=== PATIENT | female | born 1935 | race Caucasian/White ===

== ENCOUNTER 2018-01-02 18:00 | Observation (INO) ==
[2018-01-02 18:19] LABS: Basophils # 0.1 K/mcL (0.0-0.2); Basophils % 0.7 %; Eosinophils # 0.2 K/mcL (0.0-0.6); Hematocrit 43.7 % (35.3-44.9); Hemoglobin 15.2 g/dL (11.5-15.4); Immature Granulocytes % 0.3 % (0-4); Lymphocytes # 2.7 K/mcL (0.6-4.6); Lymphocytes % 38.6 %; Mean Corpuscular HGB Conc 34.8 g/dL (31.6-35.5); Mean Platelet Volume 9.5 fL (9.4-12.4); Monocytes # 0.5 K/mcL (0.0-1.3); Monocytes % 6.5 %; Neutrophils # 3.5 K/mcL (1.6-8.9); Platelet Count 199 K/mcL (140-400); Red Blood Count 4.91 M/mcL (3.82-4.97); Red Cell Distribution Width 12.7 % (11.5-14.5); Segmented Neutrophils % 50.9 %
[2018-01-02 18:23] LABS: INR 1.2; Prothrombin Time 12.5 Seconds (9.4-12.1)
[2018-01-02 18:38] LABS: BUN/Creatinine Ratio 18 (6-26); Blood Urea Nitrogen 17 mg/dL (8-23); Calcium 9.7 mg/dL (8.6-10.3); Carbon Dioxide 25 mEq/L (23-29); Chloride 100 mEq/L (98-107); Glucose 97 mg/dL (70-105); Osmolality,Calculated 283 (280-300); Potassium 3.3 mEq/L (3.5-5.1); Sodium 136 mEq/L (136-145); Troponin I < 0.03 ng/mL (< 0.04); eGFR For African Americans > 60 (> 60); eGFR For Non-African Americans 58 (> 60)
--- NOTE | 2018-01-02 18:43 | Emergency Department Note ---
Disposition Clinical Impression: Reactive airway disease, Bronchitis, Atypical chest pain Disposition: Admitted As Inpatient Condition: Serious Time of Disposition: 21:31 General Adult HPI - General Chief complaint: ED Shortness of Breath/Dyspnea Stated complaint: chest pain Time Seen by Provider: 01/02/18 18:19 Source: patient Limitations: no limitations Nursing Notes Reviewed: Yes Vital Signs Reviewed: Yes - History of Present Illness HPI Narrative: Patient presents today with CC of: chest tightness light headed short of breath Patient describes issue began around several months since she had pneumonia in July. Patient states she has been having on and off shortness of breath has gotten significantly worse within the last week. She has also been having some tightness on and off has been going on since July. She was recently evaluated by a senior sharepoint architect with a heart catheter that she says was normal. Patient went to her doctor's office today because of cough and shortness of breath became lightheaded and short of breath. She said she has been having fatigue and generalized tiredness as well. She has not been exposed to anybody sick she is not any fevers. She describes a tightness in her chest as a pressure and very difficult to describe. She has not had any nausea vomiting or diarrhea. She has not had any fever. She has been urinating normally having regular bowel movements. Dr. Jones called me earlier prior to the patient's arrival and said that her oxygen saturation was good and so was her blood pressure in the office with a heart rate in the 70s. Pain Scale: 0 - Related Data Home Medications Medication Instructions Recorded Confirmed Aspirin Enteric Coated [Aspirin EC] 81 mg PO DAILY 05/31/15 12/01/16 Multivitamin [Multi-Day Vitamins] 1 tab PO DAILY 05/31/15 12/01/16 Omeprazole [PriLOSEC] 40 mg PO DAILY 05/31/15 12/01/16 Allopurinol [Zyloprim 300 MG] 300 mg PO DAILY 12/01/16 12/01/16 Gabapentin [Neurontin] 300 mg PO BID 12/01/16 12/01/16 Lisinopril [Zestril] 10 mg PO DAILY 12/01/16 12/01/16 amLODIPine [Norvasc] 5 mg PO DAILY 12/01/16 12/01/16 Previous Rx's Medication Instructions Recorded Hydrochlorothiazide 25 mg PO DAILY #30 tablet 05/31/15 Azithromycin [Zithromax] 250 mg PO Q24H #4 tablet 12/01/16 Allergies Allergy/AdvReac Type Severity Reaction Status Date / Time nitrofurantoin Allergy Vomiting Verified 05/31/15 04:20 [From Macrobid] Oxycodone [From Percocet] Allergy Rash Verified 05/31/15 04:20 Sulfa (Sulfonamide Allergy See Verified 05/31/15 04:20 Antibiotics) Comments Review of Systems: HEART SCORE : H=1 E=1 A=2 R=2 T=0 HEART Score: H= Suspiciousness: High=2, mod=1, min=0 E= EKG: Significant ST=2, nonspecific repol=1, normal=0 A= Age: >65 =2, 45-65=1, ,45=0 R= Risk Factors: >3 RF or hx of ASVD=2, 1-2 RF=1, 0 RF=0 smoker, Lipids, HTN, diabetes mellitus, + family history, obesity, T= Troponin: >3xnrml=2, 1-3Xnrml=1, < nrml=0 EKG interpretation Rhythm - sinus with PACs Rate - 73 CT - 180 QRS - 130 QTC - 442 ST-T waves - nonspecific ST and T-wave changes Injury pattern - no acute injury pattern All systems ED: reviewed and negative except as stated. Review of Systems: As Per HPI Past Medical History - Past Medical History Medical history: Reports: cancer, GERD, hypertension, syncope Surgical history: Reports: appendectomy, breast surgery, cancer surgery, cholecystectomy, hip replacement, hysterectomy, knee replacement Psychiatric history: Reports: anxiety, depression FILM COMPOSER history: Reports: no FILM COMPOSER history - Social History Smoking Status: Never smoker Smokeless Tobacco Status: No Alcohol use: Reports: none Drug use: Reports: none Physical Exam ROS: At least 10 systems reviewed with patient or surrogate during physical exam and are otherwise negative. I have reviewed initial and available nurse's notes for the patient. The patient 's medications, allergies, and medical history was reviewed. Family, Social & Surg histories were reviewed and are not relevant except as noted above in the history of present illness, or below in the respective specific section. I have reviewed and agree with all vital signs synchronously available in EMR at the time of this dictation. Times documented are the time of computer entry, are not necessarily the time the event occurred. Physical EXAM: General ~ Constitutional: Conscious & cooperative , generally healthy elderly appearance Head: NCAT Eyes: Sclera white , conjunctiva clear , PERRL, non-icteric ENT : L Tympanic membrane normal color and landmarks R Tympanic membrane normal color and landmarks Canals are clear without significant drainage , no obstruction or vesicles , pinna and tragus non tender Nose with pink nasal mucosa, nares patent, non tender without bleeding Mouth - mucous membrane moist , pink , no lesions , no trismus Neck - no masses , supple , no cervical spinous process tenderness Pharynx - no exudate , no petechia or obvious lesions , no airway obstruction or stridor Hematologic ~ Lymphatic ~ Immunologic: Lymphadenopathy normal , no petechia , Skin color, nails and pulses unremarkable. Heart ~ Chest: Irregularly irregular, nl S1/S2 , no MRG Lungs: Breath sounds equal , clear to auscultation bilaterally , no wheezing, no rales or rhonchi , no CVA tenderness Gastrointestinal ~ Abd: Soft & non tender , BS + in 4 quads , No HSM or masses , no peritoneal signs GenitoUrinary: Deferred Musculoskeletal ~ Back ~ Extremities: Warm and w/o clubbing , cyanosis , or edema. No point tenderness , good ROM of major joints Neurologic: Cranial nerves grossly intact, good muscle strength , attention good , cooperative , Alert and oriented x4 Psychiatric: Calm , Insight and mood appropriate , Skin: No rashes , good skin turgor , cap refill 2-3 seconds , warm and dry - General Limitations: no limitations General appearance: alert, in no apparent distress Course Vital Signs Temperature 98.8 F 01/02/18 18:03 Pulse Rate 9 01/02/18 18:03 Respiratory Rate 22 01/02/18 18:03 Blood Pressure 108/84 01/02/18 18:03 O2 Sat by Pulse Oximetry 95 01/02/18 18:03 Temperature 98.8 F 01/02/18 18:03 Pulse Rate 9 01/02/18 18:03 Respiratory Rate 22 01/02/18 18:03 Blood Pressure 108/84 01/02/18 18:03 O2 Sat by Pulse Oximetry 93 01/02/18 21:15 Oxygen Delivery Oxygen Delivery Room Air Medical Decision Making - MDM Narrative Medical decision making narrative: MDM: History and physical exam is consistent with - atypical CP, dyspnea, hypokalemia DDx included multiple etiologies for the symptoms such as - atypical CP, ACS, Pneumonia, pneumothorax, Gerd, AAA, PE XRAYS: No Acute CP disease, CTA negative for PE Critical Care: None Condition and evaluation here was discussed in detail. Labwork, and test results were reviewed with the patient. CT scan angiogram O to rule out PE was performed because of positive d-dimer and was negative. Patient received significant relief from the albuterol breathing treatment in the emergency department. Her coughing and chest discomfort resolved after the breathing treatment. Troponin was negative EKG showed no acute injury pattern. I discussed watching the patient overnight with Dr. Jones who is agreeable very patient will be admitted to the hospital monitored with telemetry have cardiac enzymes and then be reevaluated by Dr. Jones the morning. - Lab Data Result diagrams: 01/02/18 18:15 01/02/18 18:15 Lab Results 01/02/18 01/02/18 01/02/18 Range/Units 18:15 18:15 18:15 WBC 6.9 (4.3-11.1) K/mcL RBC 4.91 (3.82-4.97) M/mcL Hgb 15.2 (11.5-15.4) g/dL Hct 43.7 (35.3-44.9) % MCV 89.0 (83.0-100.0) fL MCH 31.0 (28.0-33.3) pg MCHC 34.8 (31.6-35.5) g/dL RDW 12.7 (11.5-14.5) % Plt Count 199 (140-400) K/mcL MPV 9.5 (9.4-12.4) fL Immature Gran % 0.3 (0-4) % Seg Neutrophils % 50.9 % Lymphocytes % 38.6 % Monocytes % 6.5 % Eosinophils % 3.0 % Basophils % 0.7 % Neutrophils # 3.5 (1.6-8.9) K/mcL Lymphocytes # 2.7 (0.6-4.6) K/mcL Monocytes # 0.5 (0.0-1.3) K/mcL Eosinophils # 0.2 (0.0-0.6) K/mcL Basophils # 0.1 (0.0-0.2) K/mcL PT 12.5 H (9.4-12.1) Seconds INR 1.2 D-Dimer (0-500) ng/mLFEU Sodium 136 (136-145) mEq/L Potassium 3.3 L (3.5-5.1) mEq/L Chloride 100 (98-107) mEq/L Carbon Dioxide 25 (23-29) mEq/L BUN 17 (8-23) mg/dL Creatinine 0.92 (0.60-1.20) mg/dL Est GFR ( Amer) > 60 (> 60) Est GFR (Non-Af Amer) 58 L (> 60) BUN/Creatinine Ratio 18 (6-26) Glucose 97 (70-105) mg/dL Calculated Osmolality 283 (280-300) Lactic Acid (0.5-2.2) mmol/L Calcium 9.7 (8.6-10.3) mg/dL Troponin I < 0.03 (< 0.04) ng/mL B-Natriuretic Peptide (Less than 100) pg/mL 01/02/18 01/02/18 01/02/18 Range/Units 18:15 18:15 18:15 WBC (4.3-11.1) K/mcL RBC (3.82-4.97) M/mcL Hgb (11.5-15.4) g/dL Hct (35.3-44.9) % MCV (83.0-100.0) fL MCH (28.0-33.3) pg MCHC (31.6-35.5) g/dL RDW (11.5-14.5) % Plt Count (140-400) K/mcL MPV (9.4-12.4) fL Immature Gran % (0-4) % Seg Neutrophils % % Lymphocytes % % Monocytes % % Eosinophils % % Basophils % % Neutrophils # (1.6-8.9) K/mcL Lymphocytes # (0.6-4.6) K/mcL Monocytes # (0.0-1.3) K/mcL Eosinophils # (0.0-0.6) K/mcL Basophils # (0.0-0.2) K/mcL PT (9.4-12.1) Seconds INR D-Dimer 982 H (0-500) ng/mLFEU Sodium (136-145) mEq/L Potassium (3.5-5.1) mEq/L Chloride (98-107) mEq/L Carbon Dioxide (23-29) mEq/L BUN (8-23) mg/dL Creatinine (0.60-1.20) mg/dL Est GFR ( Amer) (> 60) Est GFR (Non-Af Amer) (> 60) BUN/Creatinine Ratio (6-26) Glucose (70-105) mg/dL Calculated Osmolality (280-300) Lactic Acid 1.7 (0.5-2.2) mmol/L Calcium (8.6-10.3) mg/dL Troponin I (< 0.04) ng/mL B-Natriuretic Peptide 60 (Less than 100) pg/mL - EKG Data EKG #1 EKG results narrative: EKG shows sinus rhythm with PACs of 74 There is some left axis deviation. There was 180. Patient's QRS is 130. QTc is 442. No acute injury pattern is noted.
[2018-01-02] MEDS ORDERED: Ipratropium/Albuterol Neb 3 ML IH ONE (18:48)
[2018-01-02] MEDS ORDERED: Potassium Citrate 10 MEQ TABLET.ER PO ONE (21:00)
[2018-01-02] MEDS ORDERED: Naloxone 0.4 MG/ML INJ IVP PRN (22:13)
[2018-01-02] MEDS ORDERED: *HR* LORazepam 1 MG TABLET PO PRN (23:06)
[2018-01-02] MEDS: 0.9 % Sodium Chloride 1,000 ML IVC SCH (23:33)
[2018-01-03] MEDS ORDERED: Ipratropium/Albuterol Neb 3 ML IH ONE (02:27)
[2018-01-03 05:54] LABS: Basophils # 0.1 K/mcL (0.0-0.2); Basophils % 0.9 %; Eosinophils # 0.2 K/mcL (0.0-0.6); Eosinophils % 2.6 %; Hematocrit 39.3 % (35.3-44.9); Immature Granulocytes % 0.2 % (0-4); Lymphocytes % 34.5 %; Mean Corpuscular HGB Conc 34.9 g/dL (31.6-35.5); Mean Corpuscular Hemoglobin 30.7 pg (28.0-33.3); Mean Corpuscular Volume 88.1 fL (83.0-100.0); Mean Platelet Volume 9.5 fL (9.4-12.4); Monocytes # 0.5 K/mcL (0.0-1.3); Neutrophils # 3.1 K/mcL (1.6-8.9); Platelet Count 170 K/mcL (140-400); Red Blood Count 4.46 M/mcL (3.82-4.97); Red Cell Distribution Width 12.7 % (11.5-14.5); Segmented Neutrophils % 53.8 %
[2018-01-03 05:56] LABS: Hemoglobin 13.7 g/dL (11.5-15.4)
[2018-01-03] MEDS ORDERED: *HR* Enoxaparin 40 MG/0.4 ML SYRINGE SQ SCH (06:00)
[2018-01-03 06:13] LABS: BUN/Creatinine Ratio 15 (6-26); Blood Urea Nitrogen 13 mg/dL (8-23); Carbon Dioxide 27 mEq/L (23-29); Chloride 102 mEq/L (98-107); Glucose 116 mg/dL (70-105); Osmolality,Calculated 283 (280-300); Potassium 3.3 mEq/L (3.5-5.1); Sodium 136 mEq/L (136-145); eGFR For African Americans > 60 (> 60); eGFR For Non-African Americans > 60 (> 60)
[2018-01-03 06:45] LABS: Troponin I < 0.03 ng/mL (< 0.04)
--- NOTE | 2018-01-03 07:15 | Internal Med History&Physical ---
Date of Encounter: 01/07/18 Time of Encounter: 07:13 Assessment and Plan (1) Dyspnea Status: Acute Patient was admitted from the office with history of dyspnea and coughing. She was evaluated in the ER and had elevated d-dimer but negative CT scan of lungs for PE. She seemed to improve with nebulizer treatment of albuterol. Her oxygen saturations have been good. She has had recent cardiac catheterization which was unremarkable. Serial enzymes are negative for an MS. No signs of congestive heart failure. We will have her try pro-air MDI with spacer for when necessary use. Qualifiers: Dyspnea type: shortness of breath Qualified Code(s): R06.02 - Shortness of breath; R06.00 - Dyspnea, unspecified; R06.01 - Orthopnea (2) Chronic cough Status: Chronic She continues to have a chronic cough intermittently. She did have pneumonia a few months ago. She cleared up and then has recurred with her coughing. She seen Dr. Merchant in the past and had bronchoscopy. His daily, she has been on an PIETER inhibitor for a few to several years. We will are going to hold that. She has a history of GERD and takes a PPI omeprazole and we will increase that to twice a day in case she is having silent microaspiration. (3) Hypertension Status: Chronic She has a chronic history of hypertension. It has been under good control. No unilateral WATCH CRYSTAL EDGE GRINDER changes, cardiac type chest pain, headache or blurred vision. We will continue to monitor. She did not have any orthostatic hypotension with her anxiety and lightheadedness yesterday. Qualifiers: Hypertension type: essential hypertension Qualified Code(s): I10 - Essential (primary) hypertension (4) Anxiety Status: Chronic In the office yesterday she was very anxious, had to lie down, and was visibly shaking. She uses Ativan/lorazepam on a very infrequent basis. Today she is markedly improved after having had a dose last night. We talked about use of lorazepam on a when necessary basis when she starts to feel anxious to see if that will rossi off a panic attack. She also continues with citalopram long-term (5) Atypical chest pain Status: Acute She had atypical chest pain that seemed to be associated with her dyspnea. Serial enzymes are negative. EKG does not show acute ischemic changes. She had a negative heart catheterization recently. Her monitor does show occasional PAC. I do not think she has cardiac component to her current symptoms. Internal Medicine - H&P: HPI Admitted From: Emergency Dept Plans for Post Hospital Care: Home History of present illness: Ms. Benavides is a 82 year old female with known history of hypertension, depression, anxiety, and history of chronic cough as well as recent cardiac catheterization which was unremarkable was admitted via the ER having been in the office on the same afternoon with a history of coughing spells and shortness of breath. Patient states that she has been having difficulties "hard to breathe" for about a week. Her cough is particularly worse at nighttime. She had pneumonia a few months ago and has chronic cough afterwards. She denies any anginal type exertional chest pain but does get some chest discomfort when she is dyspneic. Sometimes she coughs so hard that she gets up some clear phlegm. No hemoptysis. After she got to the office she became more dyspneic, started crying, felt lightheaded and shaky and felt like her legs were rubbery. She had to lie down in the examination room. She was tearful and anxious. Orthostatic blood pressures and pulse were normal and stable when rechecked. Her EKG showed occasional PAC and a PVC. Her oxygen saturation was 96% on room air. She was not found to be wheezing whatsoever. She was brought to the emergency room and evaluated. Her d-dimer was mildly elevated and a CT of the lungs was obtained. No PE, no infiltrate. Some scarring noted in the lingula. She was given a nebulizer treatment and that seemed to be helpful for her. Her lab work was otherwise nonfocal except for mildly low potassium of 3.3. Troponin was negative. She was admitted overnight in observation. This point she is feeling better. She has no anxiety. She denies a cardiac type chest pain or palpitations. She has been up to the bathroom with assistance and she feels more steady on her feet. Does have occasional cough. She thinks she is hungry for breakfast this morning. Her follow-up troponin was negative. Past Med Surg Social Fam HX - Past Medical History Medical history: cancer (Breast cancer right mastectomy; renal mass and cryotherapy 2013), GERD, hyperlipidemia, hypertension, syncope (No recent syncopal episode), other (Anxiety and occasional panic attack) Psychiatric history: anxiety, depression - Past Surgical History Surgical History: appendectomy, breast surgery (Right breast cancer and mastectomy), cancer surgery (Right mastectomy), cholecystectomy, hip replacement , hysterectomy, knee replacement, other - Social History Smoking Status: Never smoker Smokeless Tobacco Status: No Alcohol use: none Drug use: none - Family History Mother Living Status: Age at : 46 Hx Family Cancer: Yes (Some type of cancer) Father Living Status: Age at : 49 Hx Family Cancer: Yes (Some type of cancer) Brother Living Status: Hx Family Cancer: Yes Internal Medicine - H&P: Meds Hydrochlorothiazide 25 mg PO DAILY #30 tablet 05/31/15 [Rx] Multivitamin [Multi-Day Vitamins] 1 tab PO DAILY 05/31/15 [History] Omeprazole [PriLOSEC] 20 mg PO DAILY 05/31/15 [History] Albuterol Sulfate [Proair Hfa] 2 puff IH Q4-6H PRN #1 inh 01/03/18 [Rx] Cetirizine HCl 10 mg PO DAILY 01/03/18 [History] Citalopram [CeleXA] 10 mg PO DAILY tablet 01/03/18 [Rx] LORazepam [Ativan] 1 mg PO BID PRN 01/03/18 [History] Losartan [Cozaar] 50 mg PO DAILY tablet 01/03/18 [Rx] Potassium Chloride 20 meq PO QID 01/03/18 [History] 3 Allergy/AdvReac Type Severity Reaction Status Date / Time nitrofurantoin Allergy Vomiting Verified 05/31/15 04:20 [From Macrobid] Oxycodone [From Percocet] Allergy Rash Verified 05/31/15 04:20 Sulfa (Sulfonamide Allergy See Verified 05/31/15 04:20 Antibiotics) Comments - Constitutional Constitutional: malaise, no excessive sweating, no fever(s), no falls, no night sweats, no weight loss - EENT Eyes: no change in vision Ears: no ear discharge, no ear pain Nose, mouth and throat: no mouth pain, no neck mass, no sinus pain, no sinus pressure, no sore throat - Cardiovascular Cardiovascular ROS IM: chest pain (Chest discomfort when she gets short of breath. No exertional anginal pain), diaphoresis, dyspnea, dyspnea on exertion , lightheadedness, no irregular heart rhythm, no palpitations, no syncope - Respiratory Respiratory: cough, dyspnea, dyspnea on exertion, no hemoptysis, no wheezing, no stridor, no excessive phlegm production, no pain with cough - Gastrointestinal Gastrointestinal: no abdominal pain, no constipation, no diarrhea, no heartburn - Genitourinary Genitourinary: no dysuria, no urinary frequency Menstruation: post hysterectomy - Musculoskeletal Musculoskeletal ROS IM: muscle weakness (Her legs felt weak, now feeling stronger today and less rubbery), no arthralgias, no myalgias, no tingling - Integumentary Integumentary IM: no rash, no jaundice - Neurological Neurological ROS: no focal weakness, no frequent falls - Psychiatric Psychiatric: anxiety, depression, no auditory hallucinations, no visual hallucinations - Allergic/Immunologic Allergic/Immunologic: no tongue swelling, no throat swelling, no uticaria, no wheezing, no lip swelling - Constitutional Vitals: Temp Pulse Resp BP Pulse Ox 98.0 F 62 18 123/65 96 01/03/18 05:02 01/03/18 05:02 01/03/18 05:02 01/03/18 05:02 01/03/18 05:02 Internal Med - H&P Results - Labs CBC & Chem 7: 01/03/18 05:45 01/03/18 05:45 Labs: Short CBC 01/03/18 Range/Units 05:45 WBC 5.8 (4.3-11.1) K/mcL Hgb 13.7 D (11.5-15.4) g/dL Hct 39.3 (35.3-44.9) % Plt Count 170 (140-400) K/mcL Neutrophils # 3.1 (1.6-8.9) K/mcL BMP 01/03/18 05:45 Sodium 136 Potassium 3.3 L Chloride 102 Carbon Dioxide 27 BUN 13 Creatinine 0.86 Glucose 116 H Calcium 9.0 Cardiac Enzymes 01/03/18 Range/Units 05:45 Troponin I < 0.03 (< 0.04) ng/mL - Impressions ITS Impressions Chest X-Ray 01/03/18 06:30 IMPRESSION: No acute cardiopulmonary disease. D/ / Chapincito Carrillo MD / Chapincito Carrillo MD Interpreting Provider: Chapincito Carrillo MD - VTE Documentation of Mechanical Device: Graduated compression elastic hosiery
[2018-01-03 07:19] VITALS: BP 122/65
--- NOTE | 2018-01-03 08:30 | Discharge Summary ---
- NOTES TO OUTPATIENT PROVIDER Notes to Outpatient Provider: #1. Has an appointment to see Dr. Merchant for her chronic cough 01/12/18. #2. Her chronic use lisinopril has been discontinued and losartan prescription has been sent to [facility] in case this is contributing to her cough. #3. We have initiated pro-air with spacer for when necessary use at home. #4. I have encouraged her to use the lorazepam if she starts to feel anxious. Date of Encounter: 01/03/18 Time of Encounter: 08:28 - Discharge Diagnosis (1) Dyspnea Priority: Primary Status: Acute Comments: Patient was admitted to an observation bed having been sent from the office to the ER for further evaluation. She had an elevated d-dimer but negative CT for PE. Morning after admission she is not dyspneic. It seems be related to her coughing and anxiety. Her lisinopril has been discontinued. She has been receiving albuterol treatments which she thinks may be helpful. She has an appointment to see the environmental health and safety intern next week. She has been up and ambulatory without recurrence or dyspnea so she may be discharged to home today. Qualifiers: Dyspnea type: shortness of breath Qualified Code(s): R06.02 - Shortness of breath; R06.00 - Dyspnea, unspecified; R06.01 - Orthopnea (2) Chronic cough Priority: Secondary Status: Chronic Comments: She has had recurrence of her cough recently, sounds like she is having coughing jags very severe and that she becomes dyspneic as well as anxious. She was treated for pneumonia a few months ago. The coughing seemed to go away , now it is recurring and severe at times. Though she has been on lisinopril for quite a long time this was discontinued for fear it may be causing the cough. Losartan has been started. She has an appointment to see Dr. Merchant next week. He has seen her previously as well and patient has had bronchoscopy in the past. On day of discharge her cough was under control. (3) Hypertension Priority: Secondary Status: Chronic Comments: Patient has a history of hypertension. It was elevated in the office when she had the coughing episodes. It is improving. Her antihypertensive PIETER inhibitor lisinopril was changed to losartan for fear it was contributing to her cough. Qualifiers: Hypertension type: essential hypertension Qualified Code(s): I10 - Essential (primary) hypertension (4) Anxiety Priority: Secondary Status: Chronic Comments: Patient does have a history of chronic anxiety. With her coughing episodes then becoming dyspneic she also becomes anxious. This morning she is markedly improved, not anxious and appears to be at her baseline. She does have a benzodiazepine for when necessary use. I encouraged her to use it more often if she is becoming anxious. (5) Atypical chest pain Priority: Secondary Status: Acute Comments: She was having atypical chest pain particular with her dyspneic and coughing episodes. Troponins are negative. No signs of acute ischemic episodes. She has had a recent "normal heart cath" per Dr. Jackson. Hospital course: Ms. Benavides is a 82 year old female admitted from the office to the ER and then to observation bed because of dyspnea, hypertension, coughing. See the above diagnoses. She did well through the night and ready for discharge today. We will hold her long enough to be sure that she is up at a mandatory and maintaining ADLs before sending her home. She has an appointment with Dr. Merchant next week. - Time Spent with Patient Total time spent providing and/or coordinating discharge services: - Discharge Medications Prescriptions: Albuterol Sulfate [Proair Hfa] 2 puff IH Q4-6H PRN #1 inh PRN Reason: Shortness Of Breath Home Medications: Hydrochlorothiazide 25 mg PO DAILY #30 tablet 05/31/15 [Rx] Multivitamin [Multi-Day Vitamins] 1 tab PO DAILY 05/31/15 [History] Omeprazole [PriLOSEC] 20 mg PO DAILY 05/31/15 [History] Albuterol Sulfate [Proair Hfa] 2 puff IH Q4-6H PRN #1 inh 01/03/18 [Rx] Cetirizine HCl 10 mg PO DAILY 01/03/18 [History] Citalopram [CeleXA] 10 mg PO DAILY tablet 01/03/18 [Rx] LORazepam [Ativan] 1 mg PO BID PRN 01/03/18 [History] Losartan [Cozaar] 50 mg PO DAILY tablet 01/03/18 [Rx] Potassium Chloride 20 meq PO QID 01/03/18 [History] Allergies/Adverse Reactions: 3 Allergy/AdvReac Type Severity Reaction Status Date / Time nitrofurantoin Allergy Vomiting Verified 05/31/15 04:20 [From Macrobid] Oxycodone [From Percocet] Allergy Rash Verified 05/31/15 04:20 Sulfa (Sulfonamide Allergy See Verified 05/31/15 04:20 Antibiotics) Comments Date of admission: 01/02/18 21:35 Primary care physician: Brock Mujica MD Discharging clinician: Brock Mujica Anticipated date of discharge: 01/03/18 - Constitutional Vitals: Temp Pulse Resp BP Pulse Ox 98.1 F 80 18 122/65 97 01/03/18 07:18 01/03/18 07:18 01/03/18 05:02 01/03/18 07:18 01/03/18 07:18 - Respiratory Respiratory exam: Present: CTAB - Cardiovascular Cardiovascular exam: Present: RRR, +S1, +S2 - GI/Abdominal GI/Abdominal exam: Present: soft. Absent: tenderness - Extremities Exam Extremities exam: Absent: pedal edema, tenderness - Neurological Exam Neurological exam: Present: alert, CN II-XII intact, no focal deficits - Psychiatric Psychiatric exam: Present: normal affect, normal mood - Patient Status Disposition: Home, Self-Care Condition: Serious - Discharge Instructions Follow Up With: Brock Mujica MD [Primary Care Provider] - - VTE Documentation of Mechanical Device: Graduated compression elastic hosiery
[2018-01-03] MEDS ORDERED: amLODIPine 5 MG TABLET PO SCH (09:00)
[2018-01-03] MEDS ORDERED: Multivit/Ca/Min/Fe/FA 1 TAB TABLET PO SCH (09:00)
[2018-01-03] MEDS ORDERED: Aspirin Enteric Coated 81 MG Tablet PO SCH (09:00)
[2018-01-03] MEDS ORDERED: hydroCHLOROthiazide 25 MG TABLET PO SCH (09:00)
[2018-01-03] MEDS: 0.9 % Sodium Chloride 1,000 ML IVC SCH (11:01)
--- NOTE | 2018-01-03 23:40 | Electrocardiograph Report ---
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
--- NOTE | 2018-01-04 00:21 | Electrocardiograph Report ---
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
== END 2018-01-03 14:38 | disposition home or self-care (01) ==
LOC: INPGRE 18:00 → EMEROOGRE 18:00 → INPGRE 22:06
PROVIDERS: ADMIT Family Medicine; ATTEND Family Medicine

== ENCOUNTER 2021-06-15 17:09 | Inpatient (IN) ==
[2021-06-15 17:55] LABS: Basophils # 0.1 K/mcL (0.0-0.2); Basophils % 0.7 %; Eosinophils # 0.1 K/mcL (0.0-0.6); Eosinophils % 1.7 %; Hemoglobin 15.6 g/dL (11.5-15.4); Immature Granulocytes % 0.3 % (0-4); Lymphocytes # 2.4 K/mcL (0.6-4.6); Lymphocytes % 32.3 %; Mean Corpuscular HGB Conc 33.9 g/dL (31.6-35.5); Mean Corpuscular Volume 88.5 fL (83.0-100.0); Mean Platelet Volume 9.6 fL (9.4-12.4); Monocytes # 0.6 K/mcL (0.0-1.3); Monocytes % 7.3 %; Neutrophils # 4.3 K/mcL (1.6-8.9); Platelet Count 206 K/mcL (140-400); Red Cell Distribution Width 12.7 % (11.5-14.5); Segmented Neutrophils % 57.7 %; White Blood Count 7.5 K/mcL (4.3-11.1)
[2021-06-15 18:26] LABS: BUN/Creatinine Ratio 31 (6-26); Blood Urea Nitrogen 37 mg/dL (8-23); Calcium 9.6 mg/dL (8.6-10.3); Carbon Dioxide 35 mEq/L (23-29); Chloride 88 mEq/L (98-107); Glucose 98 mg/dL (70-105); Osmolality,Calculated 287 (280-300); Potassium 2.3 mEq/L (3.5-5.1); Sodium 134 mEq/L (136-145); Troponin I < 0.03 ng/mL (< 0.04); eGFR For African Americans 52 (> 60); eGFR For Non-African Americans 43 (> 60)
[2021-06-15] MEDS ORDERED: Furosemide 40 MG/4 ML VIAL IVP ONE (18:51)
[2021-06-15] MEDS ORDERED: *HR* LORazepam 1 MG TABLET PO ONE (19:20)
[2021-06-15 19:41] LABS: INR 3.1; Prothrombin Time 34.2 Seconds (9.4-12.1)
[2021-06-15] MEDS ORDERED: Acetaminophen 325 MG TABLET PO PRN (21:32)
[2021-06-16 02:50] LABS: Adenovirus Not Detected (Not Detect); Bordetella Pertussis Not Detected (Not Detect); Chlamydophila pneumoniae Not Detected (Not Detect); Coronavirus 229E Not Detected (Not Detect); Coronavirus HKU1 Not Detected (Not Detect); Coronavirus NL63 Not Detected (Not Detect); Coronavirus OC43 Not Detected (Not Detect); Human Metapneumovirus Not Detected (Not Detect); Human Rhinovirus/Enterovirus Not Detected (Not Detect); Influenza A Subtype 2009 H1 Not Detected (Not Detect); Influenza B Not Detected (Not Detect); Mycoplasma pneumoniae Not Detected (Not Detect); Parainfluenza Virus 1 Not Detected (Not Detect); Parainfluenza Virus 2 Not Detected (Not Detect); Parainfluenza Virus 3 Not Detected (Not Detect); Parainfluenza Virus 4 Not Detected (Not Detect); Respiratory Syncytial Virus Not Detected (Not Detect); SARS-CoV-2 Not Detected (Not Detect)
[2021-06-16 05:35] LABS: Basophils # 0.1 K/mcL (0.0-0.2); Basophils % 0.9 %; Eosinophils # 0.3 K/mcL (0.0-0.6); Eosinophils % 3.3 %; Hematocrit 40.6 % (35.3-44.9); Immature Granulocytes % 0.1 % (0-4); Lymphocytes # 2.9 K/mcL (0.6-4.6); Lymphocytes % 37.3 %; Mean Corpuscular Hemoglobin 30.1 pg (28.0-33.3); Mean Corpuscular Volume 88.5 fL (83.0-100.0); Mean Platelet Volume 9.5 fL (9.4-12.4); Monocytes # 0.6 K/mcL (0.0-1.3); Monocytes % 7.3 %; Neutrophils # 3.9 K/mcL (1.6-8.9); Platelet Count 178 K/mcL (140-400); Red Blood Count 4.59 M/mcL (3.82-4.97); Red Cell Distribution Width 12.8 % (11.5-14.5); Segmented Neutrophils % 51.1 %; White Blood Count 7.7 K/mcL (4.3-11.1)
[2021-06-16 05:37] LABS: Hemoglobin 13.8 g/dL (11.5-15.4)
[2021-06-16 05:51] LABS: Calcium 8.7 mg/dL (8.6-10.3); Potassium 2.8 mEq/L (3.5-5.1)
[2021-06-16] MEDS ORDERED: *HR* Enoxaparin 40 MG/0.4 ML SYRINGE SQ SCH (06:00)
[2021-06-16] MEDS: *HR* LORazepam 1 MG TABLET PO PRN (07:40)
[2021-06-16] MEDS ORDERED: Furosemide 20 MG/2 ML VIAL IVP ONE (08:45)
[2021-06-16] MEDS ORDERED: Spironolactone 12.5 MG TABLET PO SCH (09:00)
[2021-06-16] MEDS ORDERED: Metoprolol XL (24 HR) Succ 25 MG TAB.ER.24H PO SCH (09:00)
[2021-06-16] MEDS ORDERED: Metoprolol XL (24 HR) Succ 50 MG TAB.ER.24H PO SCH (09:00)
[2021-06-16 13:09] LABS: INR 2.6; Prothrombin Time 28.6 Seconds (9.4-12.1)
[2021-06-16] MEDS: Magnesium Oxide 400 MG TABLET PO SCH ×2 (15:12→18:41)
[2021-06-16 17:45] LABS: Calcium 8.8 mg/dL (8.6-10.3); Magnesium 1.8 mg/dL (1.6-2.6); Potassium 3.4 mEq/L (3.5-5.1)
[2021-06-16] MEDS ORDERED: Warfarin perPT PO PRN (18:00)
[2021-06-16] MEDS ORDERED: *HR* Warfarin 2.5 MG TABLET PO ONE (18:00)
[2021-06-16] MEDS ORDERED: Perflutren Lipid Microsphere 1.3 ML in 0.9 % Sodium Chloride 8.7 ML IVP PRN (18:04)
[2021-06-16] MEDS ORDERED: Magnesium Oxide 400 MG TABLET PO SCH (18:34)
[2021-06-16] MEDS ORDERED: Furosemide 40 MG/4 ML VIAL IVP ONE (20:00)
[2021-06-17 05:39] LABS: Basophils % 0.6 %; Eosinophils # 0.3 K/mcL (0.0-0.6); Eosinophils % 4.8 %; Hematocrit 41.7 % (35.3-44.9); Hemoglobin 13.7 g/dL (11.5-15.4); Immature Granulocytes % 0.3 % (0-4); Lymphocytes # 2.3 K/mcL (0.6-4.6); Lymphocytes % 34.4 %; Mean Corpuscular HGB Conc 32.9 g/dL (31.6-35.5); Mean Corpuscular Volume 91.2 fL (83.0-100.0); Mean Platelet Volume 9.7 fL (9.4-12.4); Monocytes # 0.5 K/mcL (0.0-1.3); Monocytes % 6.7 %; Neutrophils # 3.6 K/mcL (1.6-8.9); Platelet Count 168 K/mcL (140-400); Red Blood Count 4.57 M/mcL (3.82-4.97); Red Cell Distribution Width 13.2 % (11.5-14.5); Segmented Neutrophils % 53.2 %; White Blood Count 6.7 K/mcL (4.3-11.1)
[2021-06-17 05:45] LABS: INR 2.4; Prothrombin Time 27.1 Seconds (9.4-12.1)
[2021-06-17 05:56] LABS: Calcium 8.5 mg/dL (8.6-10.3); Potassium 3.8 mEq/L (3.5-5.1)
[2021-06-17] MEDS ORDERED: Furosemide 40 MG in 0.9 % Sodium Chloride 50 ML IV SCH (09:00)
[2021-06-17] MEDS: Furosemide 40 MG/4 ML VIAL IVP SCH ×2 (09:21→21:03)
[2021-06-17] MEDS: Metoprolol XL (24 HR) Succ 25 MG TAB.ER.24H PO SCH (09:21)
[2021-06-17 14:18] LABS: BUN/Creatinine Ratio 30 (6-26); Blood Urea Nitrogen 30 mg/dL (8-23); Calcium 8.9 mg/dL (8.6-10.3); Carbon Dioxide 34 mEq/L (23-29); Chloride 96 mEq/L (98-107); Glucose 124 mg/dL (70-105); Osmolality,Calculated 292 (280-300); Potassium 3.6 mEq/L (3.5-5.1); Sodium 137 mEq/L (136-145); eGFR For African Americans > 60 (> 60); eGFR For Non-African Americans 52 (> 60)
[2021-06-17] MEDS ORDERED: *HR* Warfarin 2.5 MG TABLET PO ONE (18:00)
[2021-06-17 20:10] VITALS: RESP 16
[2021-06-17] MEDS: Acetaminophen 325 MG TABLET PO SCH (21:03)
[2021-06-18 05:12] LABS: INR 2.4; Prothrombin Time 26.1 Seconds (9.4-12.1)
[2021-06-18] MEDS: Metoprolol XL (24 HR) Succ 25 MG TAB.ER.24H PO SCH (08:43)
[2021-06-18] MEDS: Acetaminophen 325 MG TABLET PO SCH ×2 (08:43→16:04)
[2021-06-18] MEDS: Furosemide 40 MG/4 ML VIAL IVP SCH (08:43)
[2021-06-18 09:08] LABS: BUN/Creatinine Ratio 26 (6-26); Blood Urea Nitrogen 26 mg/dL (8-23); Calcium 8.9 mg/dL (8.6-10.3); Carbon Dioxide 36 mEq/L (23-29); Chloride 95 mEq/L (98-107); Glucose 131 mg/dL (70-105); Magnesium 1.8 mg/dL (1.6-2.6); Osmolality,Calculated 289 (280-300); Potassium 3.5 mEq/L (3.5-5.1); Sodium 136 mEq/L (136-145); eGFR For African Americans > 60 (> 60); eGFR For Non-African Americans 53 (> 60)
[2021-06-18] MEDS: *HR* LORazepam 1 MG TABLET PO PRN (10:37)
[2021-06-18 11:21] VITALS: O2SAT 95
[2021-06-18 11:53] VITALS: BP 105/69; PULSE 75; TEMP 97.7
[2021-06-18] MEDS ORDERED: *HR* Warfarin 2.5 MG TABLET PO ONE (18:00)
== END 2021-06-18 18:25 | disposition home or self-care (01) | DRG 291 ==
LOC: INPGRE 17:27 → INTOOBSV 17:27
PROVIDERS: ADMIT Family Medicine; ATTEND Family Medicine